=== PATIENT | male | born 1990 | race Caucasian/White ===

== ENCOUNTER 2018-07-03 23:46 | Emergency (ER) | payer BC, OTHER ==
[~2018-07-03] VITALS: Ht 175.3 cm; Wt 106.6 kg
[~2018-07-03 23:46] MED LIST: CEFD300C3 PO; ERYT-96 PO
--- NOTE | 2018-07-03 23:54 | ED General ---
General Stated Complaint: BACK PAIN/MUSCLE SPAMS History of Present Illness Date Seen by Provider: Jul 03, 2018 Time Seen by Provider: 23:50 Initial Comments Patient is an otherwise healthy 27-year-old male who presents to the emergency department today complaining of back pain and muscle spasms. The patient has been having symptoms over the last several weeks. The pain is located over the left lumbar paraspinal area and is described to be mostly like spasms. He is uncertain of aggravating or alleviating factors but some movements to trigger the spasms. He has no numbness or tingling radiating down the extremities. No loss of bowel or bladder. No recent fever or chills. No urinary symptoms. He was evaluated by his primary care doctor and placed on tramadol and Flexeril but states these medications have not been effective at relieving his symptoms. Allergies and Home Medications Allergies Coded Allergies: Penicillins (Unverified Allergy, Unknown, 12/30/15) Home Medications Cefdinir 300 Mg Capsule, 300 MG PO BID Prescribed by: MAURA GUERRERO on 01/01/16 1203 Diazepam 5 Mg Tablet, 5 MG PO BID PRN Prescribed by: MERCEDES MISTRY on 07/04/18235 Hydrocodone/Acetaminophen 1 Each Tablet, 2 TAB PO Q4-6HR Prescribed by: MERCEDES MISTRY on 07/04/18235 Prednisone 20 Mg Tab, 20 MG PO UD Take 3 tablets by mouth daily with breakfast for 3 days. Then take 2 tablets daily for 3 days. Then take 1 tablet daily for 3 days. Then take one half tablet daily until gone Prescribed by: MERCEDES MISTRY on 07/04/18235 Patient Home Medication List Home Medication List Reviewed: Yes Review of Systems Review of Systems Constitutional: no symptoms reported EENTM: no symptoms reported Respiratory: no symptoms reported Gastrointestinal: no symptoms reported Genitourinary: no symptoms reported Musculoskeletal: see HPI, back pain Skin: no symptoms reported Psychiatric/Neurological: No Symptoms Reported Hematologic/Lymphatic: No Symptoms Reported Past [id number] Hx Patient Social History Type Used: Cigarettes Recent Foreign Travel: No Contact w/Someone Who Travel: No Recent Hopitalizations: No Immunizations Up To Date Tetanus Booster (TDap): Less than 5yrs Seasonal Allergies Seasonal Allergies: No Past Medical History Appendectomy Reproductive Disorders: No Family Medical History Cataracts 19 MOTHER Diabetes mellitus 19 MOTHER Hypertension 19 MOTHER Thyroid disease 19 FATHER G8 SISTER Physical Exam Vital Signs Vital Signs - First Documented 07/04/18 00:09 Temp 99.2 Pulse 98 Resp 14 B/P (MAP) 134/86 (102) Pulse Ox 99 O2 Delivery Room Air Capillary Refill : Height, Weight, BMI Height: 5'10.00" Weight: 223lbs. 2.3oz. 101.497853ca; 32.0 BMI Method:Stated General Appearance: No Apparent Distress, WD/WN Eyes: Bilateral Eye Normal Inspection, Bilateral Eye PERRL, Bilateral Eye EOMI , Bilateral Eye Abnormal EOM HEENT: PERRL/EOMI, TMs Normal, Normal ENT Inspection Neck: Full Range of Motion, Normal Inspection, Non Tender Respiratory: Lungs Clear, Normal Breath Sounds Cardiovascular: Regular Rate, Rhythm, No Edema Back: Normal Inspection, No CVA Tenderness, No Vertebral Tenderness, Muscle Spasm, Other (cannot reproduce the patient's presenting symptoms with palpation in the area of concern) Extremity: Normal Capillary Refill, Normal Inspection Neurologic/Psychiatric: Alert, Oriented x3, No Motor/Sensory Deficits Skin: Normal Color Progress/Results/Core Measures Suspected Sepsis SIRS Temperature: Pulse: Respiratory Rate: Laboratory Tests 07/04/18 00:23: White Blood Count 12.2H Blood Pressure / Mean: Laboratory Tests 07/04/18 00:23: Creatinine 0.89, Platelet Count 329 Results/Orders Lab Results Laboratory Tests Test 07/04/18 00:23 07/04/18 00:31 07/04/18 01:12 Range/Units White Blood Count 12.2 H 4.3-11.0 10^3/uL Red Blood Count 5.07 4.35-5.85 10^6/uL Hemoglobin 15.1 13.3-17.7 G/DL Hematocrit 45 40-54 % Mean Corpuscular Volume 88 80-99 FL Mean Corpuscular Hemoglobin 30 25-34 PG Mean Corpuscular Hemoglobin Concent 34 32-36 G/DL Red Cell Distribution Width 13.6 10.0-14.5 % Platelet Count 329 130-400 10^3/uL Mean Platelet Volume 10.2 7.4-10.4 FL Neutrophils % (Manual) 53 % Lymphocytes % (Manual) 33 % Monocytes % (Manual) 6 % Eosinophils % (Manual) 3 % Basophils % (Manual) 0 % Band Neutrophils 3 % Sodium Level 139 135-145 MMOL/L Potassium Level 4.1 3.6-5.0 MMOL/L Chloride Level 101 98-107 MMOL/L Carbon Dioxide Level 21 21-32 MMOL/L Anion Gap 17 H 5-14 MMOL/L Blood Urea Nitrogen 11 7-18 MG/DL Creatinine 0.89 0.60-1.30 MG/DL Estimat Glomerular Filtration Rate > 60 BUN/Creatinine Ratio 12 Glucose Level 109 H 70-105 MG/DL Calcium Level 9.0 8.5-10.1 MG/DL Troponin T < 6 <=15 NG/L Urine Color PALE YELLOW Urine Clarity CLEAR Urine pH 6.5 5-9 Urine Specific [place] <=1.005 1.016-1.022 Urine Protein NEGATIVE NEGATIVE Urine Glucose (UA) NEGATIVE NEGATIVE Urine Ketones NEGATIVE NEGATIVE Urine Nitrite NEGATIVE NEGATIVE Urine Bilirubin NEGATIVE NEGATIVE Urine Urobilinogen 0.2 NORMAL MG/DL Urine Leukocyte Esterase NEGATIVE NEGATIVE Urine RBC (Auto) NEGATIVE NEGATIVE Urine RBC NONE /HPF Urine WBC NONE /HPF Urine Squamous Epithelial Cells 0-2 /HPF Urine Crystals NONE /LPF Urine Bacteria NEGATIVE /HPF Urine Casts NONE /LPF Urine Mucus NA /LPF Urine Culture Indicated NO D-Dimer 0.23 0.00-0.49 UG/ML My Orders Orders - MERCEDES MISTRY DO Saline Lock/Iv-Start (07/04/18 00:09) Urinalysis (07/04/18 00:09) Basic Metabolic Panel (07/04/18 00:09) Ns Iv 1000 Ml (Sodium Chloride 0.9%) (07/04/18 00:15) Ekg Tracing (07/04/18 00:10) Ketorolac Injection (Toradol Injection) (07/04/18 00:45) Diazepam Tablet (Valium Tablet) (07/04/18 00:45) Cbc And Manual Diff (07/04/18 00:45) Lumbar Spine 2 Or 3 View (07/04/18 00:47) Fibrin Degradation Products (07/04/18 00:47) Ns Iv 1000 Ml (Sodium Chloride 0.9%) (07/04/18 01:15) Urinalysis (07/04/18 01:10) Medications Given in ED Current Medications Medications Dose Ordered Sig/Mandy Route Start Time Stop Time Status Last Admin Dose Admin Diazepam 5 mg ONCE ONCE PO 07/04/18 00:45 07/04/18 00:46 DC 07/04/18 00:43 5 MG Ketorolac Tromethamine 30 mg ONCE ONCE IVP 07/04/18 00:45 07/04/18 00:46 DC 07/04/18 00:43 30 MG Vital Signs/I&O 07/04/18 07/04/18 07/04/18 07/04/18 00:09 00:30 01:00 01:30 Temp 99.2 Pulse 98 95 82 92 Resp 14 16 B/P (MAP) 134/86 (102) 137/78 (97) 127/74 (91) 106/83 (91) Pulse Ox 99 98 98 97 O2 Delivery Room Air Room Air Room Air 07/04/18 02:00 B/P (MAP) 118/63 (81) Capillary Refill : Progress Note : Time: 23:55 Progress Note Patient is evaluated in the emergency department immediately on arrival to his room. He has musculoskeletal back pain which has been over the last 2-3 weeks. His physical exam is unremarkable. He has 5 over 5 motor strength in the bilateral lower extremities. Flexion at the hip does not increase his pain. He has no loss of sensation in the lower extremities. He has 2/4 reflexes at the patellar tendon. During the interview, the patient complains that he is having a back spasm. He is sitting on the bed when he has what appears to be a vasovagal episode. His eyes remained open but he does stop having conversation. He follows back over onto the bed. He is assisted by myself and the nurse. He is unresponsive with eyes open for about 5-10 seconds. Following that, the patient wakes up and answers questions normally. There was no tonic-clonic activity seen. Patient became diaphoretic with the episode but symptoms improved quickly when he was lying flat. Because of this, EKG and some additional lab work are ordered. 00:30: EKG is ordered. The patient has a normal sinus rhythm but he does have inverted T waves in the inferior leads and also has Q waves in the inferior leads. He has a deep S wave in 1, Q in 3, inverted T in 3. I asked the patient more specific questions. He has not had any recent travel. He has had no chest pain or shortness of breath symptoms. No dyspnea or chest pain with exertion. Has no review of systems to suggest any cardiac or pulmonary pathology. D-dimer is ordered along with troponin. IV fluids 2 L are given. Toradol for pain and Valium for muscle spasm. Will follow-up on results. 01:30: Patient currently feeling at baseline. He ambulance to the restroom with a normal steady gait. His neurologic exam is normal. Labs still pending. 02:40: All results are reviewed. There are no acute findings on the patient's lab panel. His urinalysis is normal. D-dimer was not elevated. Troponin is not elevated. Again, the patient has no complaints of chest pain or shortness of breath. He is feeling improved after Toradol and Valium were given in the emergency department. Plan is for discharge to home. The patient was advised to stop mixing Flexeril with Toradol as the 10 cause seizure when taken simultaneously. At discharge, he is prescribed a prednisone taper over the next 10 days. He is given [place] for severe pain and Valium for muscle spasm. He is advised not to use these simultaneously also and to take one or the other depending on which symptom he is having primarily. Upper precautions were discussed. Patient was advised not to work or leave the house while taking strong pain medications. He is encouraged to follow up with his primary care doctor. Regarding his EKG, a copy is provided for him also to take to his primary care doctor. Patient was agreeable to the plan of care including discharge and all of his questions were answered prior to discharge. He was accompanied by his mother who is driving him home today. ECG Initial ECG Impression Date: Jul 03, 2018 Initial ECG Impression Time: 00:31 Initial ECG Rate: 85 Initial ECG Rhythm: Normal Sinus Initial ECG Intervals: Normal Initial ECG Impression: Nonspecific Changes Initial ECG Comparisson: No Previous ECG Available Departure Impression Primary Impression: Back pain Disposition: 01 HOME, SELF-CARE Condition: Improved Departure-Patient Inst. Referrals: NO,LOCAL PHYSICIAN (PCP/Family) Primary Care Physician Scripts Diazepam (Valium) 5 Mg Tablet 5 MG PO BID PRN for Muscle Spasms, #30 TAB Prov: MERCEDES MISTRY DO 07/04/18 Hydrocodone/Acetaminophen ([place] 5-325 Tablet) 1 Each Tablet 2 TAB PO Q4-6HR for Pain MDD 10, #30 TAB Prov: MERCEDES MISTRY DO 07/04/18 Prednisone (Prednisone) 20 Mg Tab 20 MG PO UD, #20 TAB 0 Refills Take 3 tablets by mouth daily with breakfast for 3 days. Then take 2 tablets daily for 3 days. Then take 1 tablet daily for 3 days. Then take one half tablet daily until gone Prov: MERCEDES MISTRY DO 07/04/18 MERCEDES MISTRY DO Jul 03, 2018 23:54
--- NOTE | 2018-07-04 00:10 | NUR ---
Pt having back spasms sitting on bed, attempting to lay down on bed and passed out. pt with immediate return to consiousness after being placed in bed.
[2018-07-04] MEDS ORDERED: NS IV 1000 ML 1,000 ML IV SCH ×2 (00:15→01:15)
[2018-07-04 00:30] VITALS: BP 137/78
[2018-07-04] MEDS ORDERED: DIAZEPAM 5 MG (VALIUM) TABLET PO ONE (00:45)
[2018-07-04] MEDS ORDERED: KETOROLAC 30 MG/ML VIAL IVP ONE (00:45)
[2018-07-04 01:00] VITALS: BP 127/74
[2018-07-04 01:10] LABS: BUN/CREATININE RATIO 12; CARBON DIOXIDE 21 MMOL/L (21-32); CHLORIDE 101 MMOL/L (98-107); CREATININE SERUM 0.89 MG/DL (0.60-1.30); GFR ESTIMATED > 60; GLUCOSE 109 MG/DL (70-105); POTASSIUM 4.1 MMOL/L (3.6-5.0); SODIUM 139 MMOL/L (135-145)
[2018-07-04 01:23] LABS: CLARITY,URINE CLEAR; COLOR,URINE PALE YELLOW
[2018-07-04 01:24] LABS: BILIRUBIN,URINE NEGATIVE (NEGATIVE); GLUCOSE, URINE (UA) NEGATIVE (NEGATIVE); KETONES,URINE NEGATIVE (NEGATIVE); LEUKOCYTE ESTERASE ,URINE NEGATIVE (NEGATIVE); NITRITE,URINE NEGATIVE (NEGATIVE); PH,URINE 6.5 (5-9); PROTEIN,URINE NEGATIVE (NEGATIVE); UROBILINOGEN,URINE 0.2 MG/DL (NORMAL)
[2018-07-04 01:25] LABS: BACTERIA,URINE NEGATIVE /HPF; SQUAMOUS EPITHELIAL CELL,UR 0-2 /HPF
[2018-07-04 01:30] VITALS: BP 106/83
[2018-07-04 01:35] LABS: HEMATOCRIT 45 % (40-54); HEMOGLOBIN 15.1 G/DL (13.3-17.7); MEAN CORPUSCULAR HEMOGLOBIN 30 PG (25-34); MEAN CORPUSCULAR VOLUME 88 FL (80-99); WHITE BLOOD COUNT 12.2 10^3/uL (4.3-11.0)
[2018-07-04 01:36] LABS: BAND NEUTROPHILS 3 %; BASOPHILS % (MANUAL) 0 %; EOSINOPHILS % (MANUAL) 3 %; LYMPHOCYTES % (MANUAL) 33 %; MEAN CORPUSCULAR HGB CONC 34 G/DL (32-36); MEAN PLATELET VOLUME 10.2 FL (7.4-10.4); MONOCYTES % (MANUAL) 6 %; NEUTROPHILS % (MANUAL) 53 %; PLATELET COUNT 329 10^3/uL (130-400); RED CELL DISTRIBUTION WIDTH 13.6 % (10.0-14.5)
[2018-07-04 02:00] VITALS: BP 118/63
[2018-07-04] MEDS ORDERED: HYDR-4226 PO (02:36)
[2018-07-04] MEDS ORDERED: PRD20T PO (02:36)
[2018-07-04] MEDS ORDERED: DIAZ5TAB PO (02:36)
[2018-07-04 02:45] VITALS: BP 129/82
--- NOTE | 2018-07-04 05:48 | Diagnostic Imaging Report ---
INDICATION: Lower back pain. COMPARISON: None FINDINGS: Frontal and lateral views of the lumbar spine were obtained. Alignment and vertebral heights are maintained. There is no fracture or destructive process. Limited views of the abdomen demonstrate nonobstructive bowel gas pattern. IMPRESSION: 1. Unremarkable radiographic exam of the lumbar spine. Dictated by: Dictated on workstation # [id number]
[2018-07-04 07:11] LABS: LYMPHOCYTES % (AUTO) 35 % (12-44); MONOCYTES % (AUTO) 7 % (0-12); NEUTROPHILS % (AUTO) 54 % (42-75)
[2018-07-04 07:12] LABS: BASOPHILS # (AUTO) 0.1 10^3/uL (0.0-0.1); BASOPHILS % (AUTO) 1 % (0-10); EOSINOPHILS # (AUTO) 0.4 10^3/uL (0.0-0.3); EOSINOPHILS % (AUTO) 3 % (0-10); LYMPHOCYTES # (AUTO) 4.3 X 10^3 (1.0-4.0); MONOCYTES # (AUTO) 0.9 X 10^3 (0.0-1.0); NEUTROPHILS # (AUTO) 6.5 X 10^3 (1.8-7.8)
== END 2018-07-04 02:45 | disposition home or self-care (01) ==
LOC: EDUNIT# 23:46 → ER FS 23:50
DX: M54.5 Low back pain (principal); Z88.0 Allergy status to penicillin; Z79.52 Long term (current) use of systemic steroids; Z90.49 Acquired absence of other specified parts of digestive tract
CPT/HCPCS: 36415; 72100; 80048; 81000; 84484; 85007; 85027; 85379

== ENCOUNTER → 2018-08-30 | Outpatient (CLI) | payer BC, OTHER ==
[~2018-08-30] MED LIST changes: +DIAZ5TAB PO; +HYDR-4226 PO; +PRD20T PO
== END ==
LOC: CARD 09:09
PROVIDERS: ATTEND Family Medicine
DX: R94.31 Abnormal electrocardiogram [ECG] [EKG] (principal)
CPT/HCPCS: 93306